=== PATIENT | female | born 1985 | race Caucasian/White ===

== ENCOUNTER 2019-05-11 18:36 | Emergency (ER) | payer SELFPAY ==
[2019-05-11] MEDS ORDERED: diPHENhydraMINE IV* 50 MG/ML 1 ml VIAL (BENADRYL) IV ONE (19:40)
[2019-05-11] MEDS ORDERED: Famotidine IV* 10 MG/ML 2 ML (20 mg) IV SLOW PU ONE (19:40)
[2019-05-11] MEDS ORDERED: methylPREDNISolone 125 MG* 2 ML VIAL IV ONE (19:40)
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
[2019-05-11] MEDS ORDERED: hydrOXYzine HCL TAB* 25 MG PO ONE ×2 (20:54→21:05)
[2019-05-11 20:57] VITALS: BP 105/68
== END 2019-05-11 21:15 | disposition home or self-care (01) ==
LOC: UCCORT 18:36
DX: F17.210 Nicotine dependence, cigarettes, uncomplicated (principal)
CPT/HCPCS: 96374; 96375; 99212; A9270-GY; G0463; J1200; J2930

== ENCOUNTER 2019-06-23 08:54 | Emergency (ER) | payer BC ==
[2019-06-23 09:05] VITALS: BP 120/81
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
== END 2019-06-23 09:18 | disposition left against medical advice (07) ==
LOC: UCCORT 08:54
DX: J36 Peritonsillar abscess (principal); F17.200 Nicotine dependence, unspecified, uncomplicated
CPT/HCPCS: 99212; G0463